=== PATIENT | female | born 1945 | race Asian ===

== ENCOUNTER 2023-06-24 19:51 | Emergency (ER) | payer MEDICAID ==
[~2023-06-24] VITALS: Ht 157.5 cm; Wt 61.2 kg
[~2023-06-24 19:51] MED LIST: ASPI-1169 PO; CEPH500C2 PO; CLOP75TA15 PO; SIMV-46 PO; TELM1TAB34 PO
[2023-06-24 20:51] LABS: APPEARANCE,URINE CLEAR (CLEAR); BILIRUBIN,URINE NEGATIVE (NEGATIVE); BLOOD, URINE 2+ Ery/uL (NEGATIVE); COLOR,URINE YELLOW (YELLOW); KETONES,URINE NEGATIVE (NEGATIVE); LEUKOCYTE ESTERASE ,URINE 3+ (NEGATIVE); NITRITE, URINE NEGATIVE (NEGATIVE); PROTEIN,URINE NEGATIVE (NEGATIVE); UGLUCOSE NEGATIVE (NEGATIVE); UROBILINOGEN,URINE 0.2 EU/dL (0.2)
[2023-06-24 21:31] LABS: WBC,URINE 21-50 /HPF (0-3)
[2023-06-24 21:32] LABS: BASOPHILS # (AUTO) 0.1 K/uL (0.0-0.2); BASOPHILS % (AUTO) 0.7 % (0.0-2.0); EOSINOPHILS # (AUTO) 0.1 K/uL (0.0-0.7); EOSINOPHILS % (AUTO) 1.4 % (0.0-6.0); HEMATOCRIT 38 % (33-45); HEMOGLOBIN 12.6 g/dL (11.5-14.8); LYMPHOCYTES # (AUTO) 2.2 K/uL (0.8-4.8); LYMPHOCYTES % (AUTO) 25.8 % (20.0-44.0); MEAN CORPUSCULAR HEMOGLOBIN 31 PG (26.0-33.0); MEAN CORPUSCULAR HGB CONC 34 g/dl (31.0-36.0); MEAN CORPUSCULAR VOLUME 92 fL (82-100); MONOCYTES # (AUTO) 0.6 K/uL (0.1-1.30); MONOCYTES % (AUTO) 6.8 % (2.0-12.0); NEUTROPHILS # (AUTO) 5.6 K/uL (1.8-8.9); NEUTROPHILS % (AUTO) 65.3 % (43.0-81.0); PLATELET COUNT (AUTO) 209 K/uL (150-450); RED BLOOD CELL COUNT(AUTO) 4.12 MIL/uL (4.0-5.2); WHITE BLOOD COUNT (AUTO) 8.6 K/uL (4.3-11.0)
[2023-06-24 21:32] LABS: ADD URINE CULTURE YES
[2023-06-24 21:33] LABS: BACTERIA,URINE 3+ /HPF (None Seen); SQUAMOUS EPITHELIAL CELL,UR Few /HPF (None Seen)
[2023-06-24 21:40] VITALS: TEMP 98.6
[2023-06-24] MEDS ORDERED: NITR100C6 PO (21:49)
[2023-06-24 21:53] LABS: CALCIUM, SERUM 8.3 mg/dL (8.5-10.1); CREATININE 0.7 mg/dL (0.6-1.3); POTASSIUM 3.7 mmol/L (3.5-5.1)
[2023-06-24 21:59] LABS: ALBUMIN 3.4 g/dL (3.4-5.0); BILIRUBIN,TOTAL 0.4 mg/dL (0.2-1.0); TOTAL PROTEIN, SERUM 7.5 g/dL (6.4-8.2)
[2023-06-24 22:00] VITALS: BP 148/81; O2SAT 98
[2023-06-24 22:06] LABS: LACTIC ACID 1.2 mmol/L (0.4-2.0)
== END 2023-06-24 22:01 | disposition home or self-care (01) ==
LOC: ER 19:52
DX: N39.0 Urinary tract infection, site not specified (principal); I10 Essential (primary) hypertension; E78.00 Pure hypercholesterolemia, unspecified; Z79.899 Other long term (current) drug therapy
CPT/HCPCS: 36415; 80053-TC; 81001; 83605-TC; 85025-TC; 87040-TC; 87086-TC

== ENCOUNTER 2023-07-16 19:05 | Emergency (ER) | payer MEDICAID ==
[~2023-07-16] VITALS: Ht 157.5 cm; Wt 61.2 kg
[~2023-07-16 19:05] MED LIST changes: +NITR100C6 PO
[2023-07-16] MEDS ORDERED: ONDANSETRON HCL/PF 4 MG/2 ML VIAL ONE (19:52)
[2023-07-16] MEDS ORDERED: PANTOPRAZOLE 40 MG VIAL ONE (19:52)
[2023-07-16] MEDS ORDERED: MAG HYDROX/AL HYDROX/SIMETH 30 ML UDC ONE (19:52)
[2023-07-16] MEDS: PANTOPRAZOLE 40 MG VIAL IV ONE (19:53)
[2023-07-16] MEDS ORDERED: LIDOCAINE VISCOUS 2% UD 15 ML UDC ONE (19:53)
[2023-07-16] MEDS: IV NS 0.9% 1,000 ML BAG IV ONE (19:53)
[2023-07-16] MEDS: MAG HYDROX/AL HYDROX/SIMETH 30 ML UDC PO ONE (19:54)
[2023-07-16] MEDS: LIDOCAINE VISCOUS 2% UD 15 ML UDC MM ONE (19:54)
[2023-07-16 20:02] LABS: BASOPHILS # (AUTO) 0.1 K/uL (0.0-0.2); BASOPHILS % (AUTO) 0.5 % (0.0-2.0); EOSINOPHILS % (AUTO) 0.2 % (0.0-6.0); HEMATOCRIT 39 % (33-45); HEMOGLOBIN 13.3 g/dL (11.5-14.8); LYMPHOCYTES # (AUTO) 1.7 K/uL (0.8-4.8); LYMPHOCYTES % (AUTO) 11.4 % (20.0-44.0); MEAN CORPUSCULAR HEMOGLOBIN 31 PG (26.0-33.0); MEAN CORPUSCULAR HGB CONC 34 g/dl (31.0-36.0); MEAN CORPUSCULAR VOLUME 89 fL (82-100); MONOCYTES # (AUTO) 0.8 K/uL (0.1-1.30); MONOCYTES % (AUTO) 5.7 % (2.0-12.0); NEUTROPHILS % (AUTO) 82.2 % (43.0-81.0); PLATELET COUNT (AUTO) 219 K/uL (150-450); RED BLOOD CELL COUNT(AUTO) 4.31 MIL/uL (4.0-5.2); RED CELL DISTRIBUTION WIDTH 12.8 % (11.5-15.0); WHITE BLOOD COUNT (AUTO) 14.6 K/uL (4.3-11.0)
[2023-07-16 20:08] LABS: CALCIUM, SERUM 7.6 mg/dL (8.5-10.1); CREATININE 0.7 mg/dL (0.6-1.3); POTASSIUM 3.2 mmol/L (3.5-5.1)
[2023-07-16] MEDS: ONDANSETRON HCL/PF 4 MG/2 ML VIAL IVP ONE (20:09)
[2023-07-16] MEDS: ONDANSETRON HCL/PF - ER 4 MG/2 ML VIAL IV ONE (20:09)
[2023-07-16 20:14] LABS: ALBUMIN 3.6 g/dL (3.4-5.0); BILIRUBIN,DIRECT 0.2 mg/dL (0.0-0.2); BILIRUBIN,TOTAL 0.9 mg/dL (0.2-1.0); TOTAL PROTEIN, SERUM 7.9 g/dL (6.4-8.2)
[2023-07-16] MEDS: MORPHINE SULFATE INJ 2 MG/ML DISP.SYRIN IV ONE (20:30)
[2023-07-16 20:42] LABS: APPEARANCE,URINE SLIGHTLY CLOUDY (CLEAR); BILIRUBIN,URINE NEGATIVE (NEGATIVE); BLOOD, URINE 2+ Ery/uL (NEGATIVE); COLOR,URINE YELLOW (YELLOW); KETONES,URINE NEGATIVE (NEGATIVE); LEUKOCYTE ESTERASE ,URINE TRACE (NEGATIVE); NITRITE, URINE NEGATIVE (NEGATIVE); PH,URINE 7.5 (5.0-8.0); PROTEIN,URINE NEGATIVE (NEGATIVE); UGLUCOSE NEGATIVE (NEGATIVE); UROBILINOGEN,URINE 0.2 EU/dL (0.2)
[2023-07-16 21:14] LABS: ADD URINE CULTURE NO; BACTERIA,URINE RARE /HPF (None Seen); RBC,URINE 21-50 /HPF (0-2)
[2023-07-16 21:15] LABS: COARSE GRANULAR CASTS,URINE RARE /LPF (None Seen); SQUAMOUS EPITHELIAL CELL,UR 0-2 /HPF (None Seen); URINE AMORPHOUS PHOSPHATES Moderate /HPF (None Seen)
[2023-07-16] MEDS ORDERED: IV NS 0.9% 250 ML IV ONE (21:17)
[2023-07-16] MEDS ORDERED: CT SWABBABLE VALVE TRANS SET 1 EA INFUS.SET MC ONE (21:17)
[2023-07-16] MEDS ORDERED: IOHEXOL-300 100 ML VIAL IV ONE (21:17)
[2023-07-16 23:11] VITALS: BP 168/80; TEMP 98.6; O2SAT 98
== END 2023-07-16 23:11 | disposition home or self-care (01) ==
LOC: ER 19:06
DX: D25.9 Leiomyoma of uterus, unspecified (principal); R10.30 Lower abdominal pain, unspecified; I10 Essential (primary) hypertension; E78.00 Pure hypercholesterolemia, unspecified; Z86.79 Personal history of other diseases of the circulatory system; Z20.822 Contact with and (suspected) exposure to COVID-19
CPT/HCPCS: 99285; 74177; 96374; 76856; 96361; 96375; 87426; 85025; 80048; 83690; 80076; 81001; 36415; J2405 ×2; J7030; J7050; C9113; Q9967